=== PATIENT | male | born 1960 | race Caucasian/White ===

== ENCOUNTER → 2016-04-22 | Outpatient (CLI) | payer BC ==
[~2016-04-22] VITALS: Ht 182.9 cm; Wt 83.5 kg
[~2016-04-22] MED LIST: BACLOFEN 10MG T10 MG PO; LIPITOR 20 MG T20 M1 PO; LOSARTAN POTAS100 MG PO; NABUMETONE 750750 M1 PO; NEURONTIN 300300 M1 PO; TRAMADOL 50 MG50 MG PO
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
[2016-04-22 09:29] VITALS: BP 126/81
== END | disposition home or self-care (01) ==
LOC: PAIN 07:07
DX: M54.12 Radiculopathy, cervical region (principal); G95.89 Other specified diseases of spinal cord; I10 Essential (primary) hypertension

== ENCOUNTER → 2016-07-07 | Outpatient (CLI) | payer BC ==
[~2016-07-07] VITALS: Ht 182.9 cm; Wt 84.4 kg
--- NOTE | ~2016-07-07 | HPC ---
[facility] [place] [address] PAIN MANAGEMENT CONSULTATION Name: ALYSON ROMO [id number] Admission: 07/07/16 Attend Phys: José Manuel Cardona DO Discharge: Date of : 64 Report #: [id number] THIS REPORT FOR: //name// CC: Zackery Cardona The patient is a 56-year-old gentleman, prior seen in the pain clinic 04/22/2016. The patient is being treated for symptomatic cervical radiculopathy requiring complex medication management, history of cervical myelopathy secondary to prior spinal cord trauma in the distant past. The patient ultimately progressed after a single cervical epidural injection on 03/31/2016. This is affording good incremental relief, pain has begun to recur, it is in the neck, left shoulder and both arms. PHYSICAL EXAMINATION: GENERAL: Shows a 56-year-old gentleman, BMI is 25.2 kilograms per meter squared. Cervical range of motion is limited. Positive Lhermitte's, decreased strength bilateral shoulders. ASSESSMENT: Symptomatic cervical radiculopathy in a gentleman who had by report 80% relief following the cervical injection for up to 3 months, pain has recurred. He is using nabumetone p.r.n., gabapentin 300 as well, baclofen p.r.n. The nabumetone caused a little gastritis. ASSESSMENT: Symptomatic cervical radiculopathy. RECOMMENDATIONS: Repeat cervical epidural injection under fluoroscopy today. Follow up simply as needed. He has history of C3 cord contusion and now ongoing cervical radiculopathy with broad-based disk at C6-C7 and canal narrowed to 7.5 mm at C5-C6. If symptoms continue to be problematic, may consider cervical decompression. PROCEDURE: Cervical epidural steroid injection under fluoroscopy. PROCEDURE NOTE: After written and informed consent was obtained including risk of dural puncture, spinal cord trauma, paralysis and increased pain, the patient was taken to the fluoroscopy suite and placed in the prone position, with appropriate abdominal bolstering, neck was flexed, palms under the thighs. Skin was prepped with ChloraPrep. Sterile draping was applied. Skin wheal with 1% Xylocaine was raised. A 22-gauge 3-1/2 inch epidural Tuohy needle was placed via a midline approach at the C7-T1 interspace, advanced under biplanar fluoroscopy using continuous loss of resistance. With appropriate loss of resistance at the expected depth on lateral view, the glass loss of resistance syringe was disconnected. A low volume extension tubing was connected to the needle and a 5 mL syringe. Negative aspiration for cerebrospinal fluid or blood was noted. A 1 mL of Omnipaque was injected which showed spread within the epidural space on biplanar fluoroscopy. This was followed with 80 mg of [facility] [address] [place] [address] PAIN MANAGEMENT CONSULTATION Name: DEMETRIUSALYSON CARLOS [facility] [id number] Admission: 07/07/16 Attend Phys: José Manuel Cardona DO Discharge: Date of : 64 Report #: [id number] triamcinolone plus 1 mL of 1.5% preservative Xylocaine. Needle was withdrawn to the interspinous ligament, 0.5 mL of Xylocaine was used to flush the needle. The needle was then completely withdrawn. The area was cleansed. Band-Aid was applied. The patient was allowed to move off the procedure table and ambulated to the recovery room, monitored for an appropriate period of time, discharged in good and stable condition. <ELECTRONICALLY SIGNED> By: José Manuel Cardona DO 07/08/16 0704 [id number] 0233 José Manuel Cardona DO /nt
[2016-07-07 13:30] VITALS: BP 129/82
== END | disposition home or self-care (01) ==
LOC: PAIN 06:51
DX: M54.12 Radiculopathy, cervical region (principal); I10 Essential (primary) hypertension

== ENCOUNTER → 2018-02-07 | Outpatient (CLI) | payer BC ==
[~2018-02-07] VITALS: Ht 182.9 cm; Wt 83.9 kg
[~2018-02-07] MED LIST changes: +LOSARTAN-HCTZ1 EAC2 PO
[2018-02-07 13:06] VITALS: BP 134/85
== END | disposition home or self-care (01) ==
LOC: PAIN 07:07
DX: M54.12 Radiculopathy, cervical region (principal); Z79.899 Other long term (current) drug therapy

== ENCOUNTER → 2018-04-20 | Outpatient (CLI) | payer BC ==
[~2018-04-20] VITALS: Ht 182.9 cm; Wt 85.7 kg
[~2018-04-20] MED LIST changes: +CEFUROXIME250 MG PO
--- NOTE | ~2018-04-20 | HPC ---
[facility] [place] [address] [address] [place] [address] PAIN MANAGEMENT CONSULTATION Name: ALYSON ROMO Room #: REG [facility]#: [id number] Admission: 04/20/18 Attend Phys: Maged Blas MD Discharge: Date of : 64 Report #: [id number] THIS REPORT FOR: //name// CC: Zackery Santo DATE OF SERVICE: 04/20/2018 CHIEF COMPLAINT: Here for possible cervical epidural injection. HISTORY: The patient is a 58-year-old gentleman who has been seen in the pain clinic in the past because of cervical radiculopathy. He underwent an epidural steroid injection at the last visit. He noted significant improvement in his pain. Pain decreased greater than 50%. He is still noting some improvement in the pain. He has noted some increased pain at this juncture. It involves his neck with pain that is radiating down into both shoulders and into his upper arms. Left side is more problematic than the right. He recently has had some cold symptomatology. He has been seen by his physician and started on cefuroxime for 10 days. He has taken the first pill. At this juncture, his pain continues to be problematic. He rates it as a 6-7/10 and would like to consider an injection. ALLERGIES: No known drug allergies. CURRENT MEDICATIONS: Losartan/hydrochlorothiazide 100/12.5, Relafen 750 mg b.i.d., Lipitor 20 mg, cefuroxime 10-day course. PAIN CLINIC ASSESSMENT/PQRS: 1. History of osteoarthritis. The patient has some arthritic changes in his arm as well as in his knee. The patient is not being treated for rheumatoid arthritis. 2. Height 6 feet, weight 189 pounds, BMI is 25. 3. Vital signs: Blood pressure 150/69, respiratory rate 16, room air saturation is 99%. 4. Pain intensity 6-7/10. 5. Fall risk. The patient has not fallen in the last 3 months. 6. Blood thinner. The patient is not on a blood thinning medication. 7. Hypertension. The patient is being treated for hypertension. 8. Opioids greater than for 1 week. The patient is not being treated for opioids. 9. Risk assessment tool, low for opioid risk. 10. Functional assessment tool . 11. Drug use. The patient denies use of recreational drugs. 12. Tobacco: The patient denies use of tobacco. 13. Alcohol: The patient occasionally drinks alcoholic beverages. [facility] [address] [place] [address] PAIN MANAGEMENT CONSULTATION Name: ALYSON ROMO Room #: REG [facility]#: [id number] Admission: 04/20/18 Attend Phys: Maged Blas MD Discharge: Date of : 64 Report #: [id number] PHYSICAL EXAMINATION: GENERAL: The patient is a well-developed, well-nourished white male. Appears his stated age. He is alert, oriented x 3. Affect is appropriate. Speech is fluent. HEENT: Normocephalic, atraumatic. Extraocular eye muscles intact. Sclerae nonicteric. NECK: Without adenopathy or JVD. The patient has some pain and discomfort with radiation of pain down into both shoulders bilaterally. Also, notes some pain and discomfort in the forearm area. Notes some weakness and sensory changes. ABDOMEN: Nontender. Bowel sounds present. EXTREMITIES: Upper extremity without significant scoliosis, kyphosis, or lordosis. Upper extremity muscle strength is judged to be 5-/5 for the major muscle groups in the upper extremity. Deep tendon reflexes are trace at the biceps. Lower extremity, trace reflexes at the knees. IMPRESSION: 1. Cervical radiculopathy with pain that is radiating down into his arms and with decreased sensory findings in the C6-C7 area. The patient has a broad-based disk protrusion at C6-C7 with tapering to 9 mm. Also, the patient has some narrowing in the left paracentral disk area with protrusion at C5-C6 tapering on the left with the canal measuring 7.5 mm. Severe left foraminal stenosis at this level. Again if we had the impression, which should have been cervical radiculopathy. 2. Hypercholesterolemia. 3. Hypertension. RECOMMENDATIONS: We discussed treatment options with the patient and his . The patient recently started an antibiotic. We explained to him the reason behind delay of a cervical epidural steroid injection. Steroids can decrease one's ability to fight off infections. The patient is receiving cefuroxime for the next 10 days. Once he finishes his medication and finds that his sinuses have improved/resolved, the patient will then come to the pain clinic, at which time we will consider a cervical epidural steroid injection. The patient's states that they understand. He has gleaned greater than 50% improvement after the last injection. He has returned today for evaluation. The patient will follow up after resolution of his upper airway problem with sinusitis. By: [id number] Maged Blas MD /clare
[2018-04-20 13:16] VITALS: BP 150/99
--- NOTE | 2018-04-20 13:21 | NUR ---
Pain Clinic Assessment: 1. History of Osteoarthritis: Not Applicable History of Rheumatoid Arthritis: Not Applicable 2. Height: 6 ft. 0 in. 182.9 cm. Weight: 189.0 lb. oz. 85.730 kg. Patient's BMI: 25.6 3. Vital Signs: BP: 150/99 Pulse: 69 Resp: 16 Temp: 02 Sat: 99 ECG Mon: 4. Pain Intensity: 6-7 5. Fall Risk: Dizziness: N Needs help standing or walking: N Fallen in the last 3 months: N Fall risk comments: 6. Patient on Blood Thinner: None 7. History of Hypertension: Y 8. Opioid Therapy greater than 6 weeks: N Opiate Contract Signed: 9. Risk Assessment Tool Provided: LOW RISK 0 10. Functional Assessment Tool: 11. Recreational Drug Use: Never Drug Type: Tobacco Use: Never Smoker Tobacco Type: Amount or Packs/day: How Many Years: Alcohol Use: Yes Frequency: Quant:
== END ==
LOC: PAIN 07:25
DX: M50.123 Cervical disc disorder at C6-C7 level with radiculopathy (principal); M48.02 Spinal stenosis, cervical region; E78.00 Pure hypercholesterolemia, unspecified; I10 Essential (primary) hypertension

== ENCOUNTER → 2018-05-09 | Outpatient (CLI) | payer BC ==
[~2018-05-09] VITALS: Ht 182.9 cm; Wt 86.3 kg
[2018-05-09 13:24] VITALS: BP 130/84
--- NOTE | 2018-05-09 13:34 | NUR ---
Pain Clinic Assessment: 1. History of Osteoarthritis: Not Applicable History of Rheumatoid Arthritis: Not Applicable 2. Height: 6 ft. 0 in. 182.9 cm. Weight: 190.2 lb. oz. 86.274 kg. Patient's BMI: 25.8 3. Vital Signs: BP: 130/84 Pulse: 66 Resp: 16 Temp: 02 Sat: 98 ECG Mon: 4. Pain Intensity: 5 5. Fall Risk: Dizziness: N Needs help standing or walking: N Fallen in the last 3 months: N Fall risk comments: 6. Patient on Blood Thinner: None 7. History of Hypertension: Y 8. Opioid Therapy greater than 6 weeks: N Opiate Contract Signed: 9. Risk Assessment Tool Provided: LOW RISK 0 10. Functional Assessment Tool: 11. Recreational Drug Use: Never Drug Type: Tobacco Use: Never Smoker Tobacco Type: Amount or Packs/day: How Many Years: Alcohol Use: Yes Frequency: Quant:
--- NOTE | 2018-05-11 08:38 | HPC ---
[facility] [place] [address] PAIN MANAGEMENT CONSULTATION Name: ALYSON ROMO Room #: REG [facility].#: [id number] Admission: 05/09/18 Attend Phys: Maged Blas MD Discharge: Date of : 64 Report #: [id number] THIS REPORT FOR: //name// CC: Zackery Blas DATE OF SERVICE: 05/09/2018 CHIEF COMPLAINT: Here for a cervical epidural steroid injection. HISTORY: The patient is a 58-year-old gentleman, who has been followed in the pain clinic because of cervical radiculopathy. He has undergone epidural steroid injections and gleaned benefits from these. He returns today for another injection. He has gleaned greater than 50% improvement after the injections. He was somewhat sick at the last visit and unable to undergo an injection. He has returned today to undergo an injection. He notes that the pain often times last 3-4 months. At this juncture, he feels that another injection would be beneficial. He is having pain that radiates down into both shoulders in the mid and upper back area. CURRENT MEDICATIONS: Losartan/hydrochlorothiazide 100/12.5, Relafen 750 mg b.i.d., and Lipitor 20 mg. ALLERGIES: No known drug allergies. PAIN CLINIC ASSESSMENT AND PQRS: 1. History of osteoarthritis. The patient has some arthritic changes in his arm as well as in his knee. He has not been treated for rheumatoid arthritis. 2. Pain intensity is 5/10. 3. Fall risk. The patient has not fallen in the last 3 months. 4. Blood thinner. The patient is not on a blood thinning medication. 5. Hypertension. The patient is being treated for hypertension. 6. Opioid therapy greater than 6 weeks. The patient is not on a regular opioid regimen. 7. Functional assessment tool, 45/70. 8. Risk assessment tool, low, zero for risks of opioid use. 9. Recreational drug use. The patient denies use of recreational drugs. 10. Tobacco: The patient has never smoked. 11. Alcohol. The patient drinks alcoholic beverages on occasion. PHYSICAL EXAMINATION: GENERAL: The patient is a well-developed, well-nourished white male. He appears his stated age. He is alert and oriented x 3. His affect is appropriate. Speech is fluent. Height is 6 feet, weight is 190 pounds, and BMI is 25.8. VITAL SIGNS: Blood pressure is 130/84, pulse is 66, respiratory rate is 16, and [facility] [address] [place] [address] PAIN MANAGEMENT CONSULTATION Name: ALYSON ROMO Room #: REG [facility]#: [id number] Admission: 05/09/18 Attend Phys: Maged Blas MD Discharge: Date of : 64 Report #: [id number] room air saturation is 98%. HEENT: Normocephalic, atraumatic. Extraocular eye muscles intact. Sclerae nonicteric. Mucous membranes are moist. NECK: Without adenopathy or JVD. The patient has some pain and discomfort in his back and shoulder area bilaterally. He has pain and discomfort that radiates down into the right and left shoulders, left side more problematic than right. ABDOMEN: Nontender. Bowel sounds present. EXTREMITIES: Muscle strength is judged to be 5/5 for the major muscle groups in the upper extremity. IMPRESSION: 1. Cervical radiculopathy in the C6-C7 area. The patient has some decreased sensation in this area. The patient has disk protrusion at C6-C7 with tapering to 9 mm. 2. The patient has a narrowing of the left paracentral disk area with protrusion at C5-C6, tapering to the left and measuring 7.5 mm. 3. Severe left foraminal stenosis at this level. 4. Hypercholesterolemia. 5. Hypertension. RECOMMENDATIONS: We have discussed treatment options with the patient and his . Risks and benefits of an epidural steroid injection in the cervical area were again reviewed. Possible complications of the procedure, which could include but are not limited to infection, worsening pain, no improvement in pain, bleeding, nerve damage, and paralysis were reviewed. The patient elects to proceed. PROCEDURE NOTE: The patient was taken to the procedure area. He was assisted in getting on the examination table. He was placed in the prone position. A pillow was placed under his shoulders to bolster and improve positioning. His neck was sterilely prepped with a Betadine solution. It was allowed to dry. Fluoroscopy using anterior, posterior as well as lateral viewing were implemented. A 25-gauge needle was then advanced into the area of the C7-T1 interspace. This area had been sterilely prepped with Betadine and infiltrated with 0.25% bupivacaine. A 17-gauge Tuohy with loss of resistance technique was used to gain access to the epidural space. There was no CSF, heme, or paresthesia. A total of 120 mg triamcinolone was injected. The patient tolerated the procedure well. A total of 10 seconds fluoroscopy time was used. The patient's pain was 0 at the time of discharge, down from 5. He will follow up in the future as needed. [address] [address] PAIN MANAGEMENT CONSULTATION Name: ALYSON ROMO Room #: REG [facility].#: [id number] Admission: 05/09/18 Attend Phys: Maged Blas MD Discharge: Date of : 64 Report #: [id number] We would like to thank you for letting us to participate in his care. We hope he continues to improve. <ELECTRONICALLY SIGNED> By: Maged Blas MD 05/11/18 0838 [id number] [id number] Maged Blas MD /[facility]
== END | disposition home or self-care (01) ==
LOC: PAIN 07:08
DX: M50.123 Cervical disc disorder at C6-C7 level with radiculopathy (principal); M48.02 Spinal stenosis, cervical region; G89.29 Other chronic pain; I10 Essential (primary) hypertension; E78.00 Pure hypercholesterolemia, unspecified; M19.90 Unspecified osteoarthritis, unspecified site; Z79.899 Other long term (current) drug therapy; Z98.890 Other specified postprocedural states

== ENCOUNTER → 2019-01-23 | Outpatient (CLI) | payer BC ==
[~2019-01-23] VITALS: Ht 185.4 cm; Wt 82.8 kg
[2019-01-23 11:48] VITALS: BP 153/76
--- NOTE | 2019-01-23 11:58 | NUR ---
Pain Clinic Assessment: 1. History of Osteoarthritis: Not Applicable History of Rheumatoid Arthritis: Not Applicable 2. Height: 6 ft. 1 in. 185.4 cm. Weight: 182.6 lb. oz. 82.827 kg. Patient's BMI: 24.1 3. Vital Signs: BP: 153/76 Pulse: 56 Resp: 14 Temp: 02 Sat: 100 ECG Mon: 4. Pain Intensity: 8-NOW,5 DAILY AVG 5. Fall Risk: Dizziness: N Needs help standing or walking: N Fallen in the last 3 months: N Fall risk comments: 6. Patient on Blood Thinner: None 7. History of Hypertension: Y 8. Opioid Therapy greater than 6 weeks: N Opiate Contract Signed: 9. Risk Assessment Tool Provided: LOW RISK 0 10. Functional Assessment Tool: 45/ 11. Recreational Drug Use: Never Drug Type: Tobacco Use: Never Smoker Tobacco Type: Amount or Packs/day: How Many Years: Alcohol Use: Yes Frequency: Monthly Quant: 1-2 TIMES A MO
--- NOTE | 2019-02-22 08:25 | HPC ---
[facility] [place] [address] PAIN MANAGEMENT CONSULTATION Name: ALYSON ROMO Room #: REG [facility].#: [id number] Admission: 01/23/19 Attend Phys: Maged Blas MD Discharge: Date of : 64 Report #: [id number] THIS REPORT FOR: //name// CC: Zackery Santo DATE OF SERVICE: 01/23/2019 CHIEF COMPLAINT: Pain in the shoulders and neck, which goes down into both arms and into the biceps. HISTORY: The patient is a 58-year-old gentleman who has been seen in the pain clinic because of cervical radiculopathy. Epidural steroid injections in the past have been beneficial. He has gleaned greater than 50% improvement. He returns today indicating that his pain has recurred. Over the last few weeks, he has noted some worsening of the pain and it has begun to radiate down into his shoulders, arms, and has reached a level of 8 in intensity. It averages about 5/10 on a daily basis. Pain is exacerbated when he is lying down and raising his arms and with certain activities. He has tried use of Icy Hot and medications. The injections in the past have been beneficial and he has returned with the desire to undergo another cervical epidural steroid injection to help quell his pain. ALLERGIES: No known drug allergies. CURRENT MEDICATIONS: Losartan/hydrochlorothiazide 100/12.5, Relafen 750 mg b.i.d., and Lipitor 20 mg. PAIN CLINIC ASSESSMENT/PQRS: 1. History of osteoarthritis. The patient has some arthritic changes in his arm as well as in his knee. He is not being treated for rheumatoid arthritis. 2. Height 6 feet 1 inch, weight 182 pounds, BMI is 24.1. 3. Vital signs: Blood pressure 153/76, pulse 56, respiratory rate 14, room air saturation 100%. 4. Pain intensity is 8/10 now and 5/10 on a daily basis. 5. Fall risk. The patient has not fallen in the last 3 months. 6. Blood thinner. The patient is not on a blood thinning medication. 7. Hypertension. The patient is being treated for hypertension. 8. Opioids greater than 6 weeks. The patient is not using opioids on a regular basis. 9. Risk assessment tool, low for opioid use. 10. Functional assessment tool 45/. 11. Recreational drugs: The patient denies. 12. Tobacco: The patient has never smoked. 13. Alcohol: The patient drinks [place] [id number] PAIN MANAGEMENT CONSULTATION Name: ALYSON ROMO Room #: REG [facility]#: [id number] Admission: 01/23/19 Attend Phys: Maged Blas MD Discharge: Date of : 64 Report #: [id number] PHYSICAL EXAMINATION: GENERAL: The patient is a well-developed, well-nourished white male. Appears his stated age. He is alert and oriented x 3. His affect is appropriate. Speech is fluent. HEENT: Normocephalic, atraumatic. Extraocular eye muscles intact. Sclerae nonicteric. Mucous membranes are moist. NECK: Without adenopathy or JVD. The patient has pain and discomfort in his back and his shoulders bilaterally. Pain radiates down into the biceps portion of his arms. CHEST: Clear to auscultation. ABDOMEN: Nontender. Bowel sounds present. EXTREMITIES: Upper extremity muscles strength is judged 5/5 for the major muscle groups in the upper extremity. IMPRESSION: 1. Cervical radiculopathy in the C6-C7 area. The patient notes some decreased sensation in this area. The patient has a history of a protruded disk at C6-C7, which tapers this area to 9 mm. 2. The patient has a narrowing of the left paracentral disk area with protrusion at C6/C5, tapering to 7.5 mm on the left. 3. Severe left foraminal stenosis, cervical spine. 4. Hypercholesterolemia. 5. Hypertension. RECOMMENDATIONS: We discussed treatment options with the patient. Risks and benefits of a cervical epidural steroid injection were again discussed. Possible complications of the procedure were reviewed. They include but are not limited to infection, worsening of pain, no improvement in pain, bleeding, nerve damage, and the patient elects to proceed. PROCEDURE NOTE: The patient was taken to the procedure area. He was then assisted in getting on the examination table. His neck was sterilely prepped with a Betadine solution. A pillow had been placed under his chest to promote better positioning. A 0.25% bupivacaine was infiltrated using a 25-gauge needle at the C7/T1 interspace. After this area had been anesthetized, a 17-gauge Tuohy with loss of resistance technique at the C7-T1 interspace was then introduced. Aspiration was negative. A total of 120 mg triamcinolone was injected. The patient tolerated the procedure well. There were no complications. Remained in the pain clinic for an appropriate amount of time. He will follow up in the future as needed. [address] [address] PAIN MANAGEMENT CONSULTATION Name: ALYSON ROMO Room #: [facility]#: [id number] Admission: 01/23/19 Attend Phys: Maged Blas MD Discharge: Date of : 64 Report #: [id number] We would like to thank you for letting us participate in his care. We hope he continues to improve. <ELECTRONICALLY SIGNED> By: Maged Blas MD 02/22/19 0825 [id number] Maged Blas MD /[facility]
== END | disposition home or self-care (01) ==
LOC: PAIN 07:01
DX: M54.12 Radiculopathy, cervical region (principal); G89.29 Other chronic pain; M48.02 Spinal stenosis, cervical region; I10 Essential (primary) hypertension; E78.00 Pure hypercholesterolemia, unspecified; Z98.890 Other specified postprocedural states; Z79.899 Other long term (current) drug therapy

== ENCOUNTER → 2019-08-21 | Outpatient (CLI) | payer BC ==
[~2019-08-21] VITALS: Ht 182.9 cm; Wt 85.8 kg
[2019-08-21 12:27] VITALS: BP 146/91
--- NOTE | 2019-08-21 12:31 | NUR ---
Pain Clinic Assessment: 1. History of Osteoarthritis: NONES History of Rheumatoid Arthritis: Not Applicable 2. Height: 6 ft. 0 in. 182.9 cm. Weight: 189.2 lb. oz. 85.821 kg. Patient's BMI: 25.7 3. Vital Signs: BP: 146/91 Pulse: 65 Resp: 18 Temp: 02 Sat: 99 ECG Mon: 4. Pain Intensity: 8-NOW 5. Fall Risk: Dizziness: N Needs help standing or walking: N Fallen in the last 3 months: N Fall risk comments: 6. Patient on Blood Thinner: None 7. History of Hypertension: Y 8. Opioid Therapy greater than 6 weeks: N Opiate Contract Signed: 9. Risk Assessment Tool Provided: LOW RISK 0 10. Functional Assessment Tool: 11. Recreational Drug Use: Never Drug Type: Tobacco Use: Never Smoker Tobacco Type: Amount or Packs/day: How Many Years: Alcohol Use: Yes Frequency: Weekly Quant: A COUPLE DRINKS
--- NOTE | 2019-08-30 11:05 | HPC ---
[facility] [place] [address] PAIN MANAGEMENT CONSULTATION Name: ALYSON ROMO Room #: REG [facility]#: [id number] Admission: 08/21/19 Attend Phys: Maged Blas MD Discharge: Date of : 64 Report #: [id number] THIS REPORT FOR: cc: Zackery Grewal,Maged Bey MD ~ CC: Zackery Blas DATE OF SERVICE: 08/21/2019 PRIMARY CARE PHYSICIAN: Zackery Grewal DO CHIEF COMPLAINT: Return of pain and discomfort in the arm and shoulder. The patient's pain is causing some problems with sleep. HISTORY: The patient is a 59-year-old gentleman who has been followed in the pain clinic. He has had cervical pain and discomfort in the past. He has undergone an epidural steroid injection. Those have been beneficial. He has noticed that his pain has increased over the last few months. He rates the pain today as an 8/10. Pain radiates down from his neck into his biceps with numbness and tingling. He has been taking nonsteroidal anti-inflammatory medications to help with the pain. Describes it as a sharp pain at times with aching characteristics. He has used Icy Hot medications and the injections have been most beneficial. He would like to proceed with another injection. ALLERGIES: No known drug allergies. CURRENT MEDICATIONS: Losartan, hydrochlorothiazide 100/12.5, Relafen 750 mg b.i.d., Lipitor 20 mg. PAIN CLINIC ASSESSMENT AND PQRS: 1. The patient has some osteoarthritic changes in the spinal cord as well as in his knees. He is not being treated for rheumatoid arthritis. 2. Height 6 feet 0 inches, weight 189 pounds, BMI is 25.7. 3. Vital signs: Blood pressure 146/91, pulse 65, respiratory rate 18, room air saturation 99%. 4. Pain intensity 8/10. 5. Fall history: The patient has not fallen in the last 3 months. 6. Blood thinner. The patient is not on a blood thinning medication. 7. Hypertension. The patient is being treated for hypertension. 8. Opioids greater than 6 weeks. The patient is not on an opioid medication on a regular basis. 9. Risk assessment tool, low for opioid use. 10. Functional assessment tool . 11. Recreational drug use. The patient denies. [address] [address] PAIN MANAGEMENT CONSULTATION Name: ALYSON ROMO Room #: REG [facility]#: [id number] Admission: 08/21/19 Attend Phys: Maged Blas MD Discharge: Date of : 64 Report #: [id number] 12. Tobacco: The patient has never smoked. 13. Alcohol. The patient ____. PHYSICAL EXAMINATION: GENERAL: The patient is a well-developed, well-nourished white male. Appears his stated age. He is alert and oriented x 3. His affect is appropriate. Speech is fluent. HEENT: Normocephalic, atraumatic. Extraocular eye muscles intact. Sclerae nonicteric. Mucous membranes are moist. The patient has increased pain and discomfort with movement of his neck. Notes some changes in the neck position can exacerbate pain with pain causing it to radiate down into both shoulders and down into his arms. This has engulfed the biceps portion of his arms. CHEST: Clear to auscultation. ABDOMEN: Nontender. EXTREMITIES: Upper extremity muscle strength judged to be 5/5 for the major muscle groups in the upper extremity. Lower extremity muscle strength 5/5 for the lower extremities. IMPRESSION: 1. Cervical radiculopathy in the C6-C7 dermatomal distribution with sensory changes. The patient has a history of a protruded disk at C6-C7 with a taper in this area of 9 mm. The patient has a narrowing of his left paracentral disk area with protrusion at C6-C5 tapering to 7.5 mm on the left. 2. Severe left foraminal stenosis of the cervical spine. 3. Hypercholesterolemia. 4. Hypertension. RECOMMENDATIONS: We discussed treatment options with the patient. Risks and benefits of an epidural steroid injection were discussed. They include but are not limited to infection, worsening the pain, no improvement in the pain, nerve damage, nerve weakness. We have discussed the problems with use of steroids. They can suppress once immunity. In light of the COVID-19 guidance, we explained to the patient the possible complications. If he should become infected with COVID while being suppressed, he could have a more difficult time getting rid of the virus. He states that he is aware of that. His pain is so severe that he would like to proceed even in spite of that. He is staying at home. He is concerned about COVID, but feels that overall things are rise to the level that he is unable to function. PROCEDURE NOTE: The patient was taken to the procedure area. He was then assisted in getting on the examination table. His back was sterilely prepped with a Betadine solution. Fluoroscopy using anterior, posterior as well as lateral viewing were implemented. The patient's was back was infiltrated with 0.25% bupivacaine using a 25-gauge needle to numb it at the C7-T1 interspace. A 17-gauge Tuohy with loss of resistance technique was used to gain access to the epidural space. There was no CSF, heme or paresthesia. A total of [address] [facility] [address] [place] [address] PAIN MANAGEMENT CONSULTATION Name: ALYSON ROMO [id number] Admission: 08/21/19 Attend Phys: Maged Blas MD Discharge: Date of : 64 Report #: [id number] triamcinolone was injected. A total of 12 seconds fluoroscopy time was used. The patient's pain decreased from 8-0 at the time of discharge. He will stay in social isolation and remain vigilant washing hands and compliant with activities which would lessen the chance of the COVID-19 infection. We would like to thank you for letting us participate in his care. We hope he continues to improve. <ELECTRONICALLY SIGNED> By: Maged Blas MD 08/30/19 1105 1057 16 Maged Blas MD /[facility]
== END | disposition home or self-care (01) ==
LOC: PAIN 06:45
DX: M54.12 Radiculopathy, cervical region (principal); M48.02 Spinal stenosis, cervical region; I10 Essential (primary) hypertension; E78.00 Pure hypercholesterolemia, unspecified; M19.90 Unspecified osteoarthritis, unspecified site; Z98.890 Other specified postprocedural states; Z79.899 Other long term (current) drug therapy

== ENCOUNTER → 2020-01-17 | Outpatient (CLI) | payer BC ==
[~2020-01-17] VITALS: Ht 182.9 cm; Wt 83.7 kg
--- NOTE | ~2020-01-17 | HPC ---
[facility] [place] [address] PAIN MANAGEMENT CONSULTATION Name: ALYSON ROMO Room #: REG [facility].#: [id number] Admission: 01/17/20 Attend Phys: Maged Blas MD Discharge: Date of : 64 Report #: [id number] CC: Zackery Blas DATE OF SERVICE: 01/17/2020 CHIEF COMPLAINT: Pain in the right shoulder, left shoulder and biceps. HISTORY: The patient is a 59-year-old gentleman who has been followed in the pain clinic because of chronic pain. He is having pain involving both shoulders. Has some pain in his neck that radiates down into both arms. Notes that there is some sensitivity to touch in these areas. He notes pain is sharp and aching in character. Lying down and raising his arms exacerbate the pain. Has use Icy Hot and was found that the epidural injections have been beneficial. He has returned today with the hopes of undergoing another treatment course. ALLERGIES: No known drug allergies. CURRENT MEDICATIONS: Include losartan, hydrochlorothiazide 10/12.5, Relafen 750 mg b.i.d., Lipitor 20 mg. PAIN CLINIC ASSESSMENT AND PQRS: 1. The patient has some osteoarthritic changes and spinal cord as well as in his knee. He is not being treated for rheumatoid arthritis. 2. Height 6 feet, weight 184 pounds, BMI is 25. 3. Vital signs: Blood pressure 130/79, pulse 63, respiratory rate 14, room air saturation 100%. 4. Pain intensity 7-8/10. 5. The patient has pain radiating in the right shoulder, left shoulder and down into the biceps. 6. Fall history: The patient has not fallen in the last 3 months. 7. Blood thinner. The patient is not on a blood thinning medication. 8. Hypertension. The patient is being treated for hypertension. 9. Opioids. The patient receives medication from his primary. 10. Risk assessment tool, low for opioid use. 11. Functional assessment tool 45/70. 12. Recreational drug use. The patient denies. 13. Tobacco: The patient does not smoke. 14. Alcohol: The patient occasionally drinks alcoholic beverages. PHYSICAL EXAMINATION: GENERAL: The patient is a well-developed, well-nourished white male. Appears his stated age. He is alert and oriented x 3. His affect is appropriate. Speech is fluent. HEENT: Normocephalic, atraumatic. Extraocular eye muscles intact. Sclerae nonicteric. Mucous membranes are moist. The patient has some pain and discomfort in the posterior portion of his neck. Range of motion in his neck is somewhat limited. He notes some exacerbation of pain and discomfort down into both shoulders into his arms with certain movements. Notes some pain and discomfort in his biceps. CHEST: Clear to auscultation. HEART: Regular rate. ABDOMEN: Nontender. MUSCULOSKELETAL: Upper extremity muscle strength judged to be 5/5 for the major muscle groups in the upper extremity. Lower extremity muscle strength judged to be 5/5 for the lower extremities. IMPRESSION: Cervical radiculopathy in the C6-C7 dermatomal distribution with sensory changes. The patient has a history of a protruding disk at C6-C7 with the tapering to 9 mm. The patient also has a narrowing of the left paracentral disk with protrusion at C5-C6 with tapering to 7.5 mm on the left. IMPRESSION: 1. Severe left foraminal stenosis of the cervical spine. 2. Hypercholesterolemia. 3. Hypertension. RECOMMENDATIONS: We discussed treatment options with the patient. At this juncture, we will have the patient resume nabumetone 750 mg 1 p.o. b.i.d. He will return to the Pain Clinic in the future as needed. The patient will also consider a cervical epidural steroid injection today. Risks and benefits of the procedure were discussed. They include but are not limited to infection, worsening pain, no improvement in pain, nerve damage, bleeding, and the patient elects to proceed. We discussed the problems with COVID-19. Steroids can decrease one's immunity. Should the patient's immunity fall he may have a more difficult time with COVID-19. He elects to proceed. PROCEDURE NOTE: The patient was taken to the procedure area. He was then assisted in getting on the examination table. A pillow was placed under his shoulders. His neck was sterilely prepped with a Betadine solution. A 0.25% bupivacaine was infiltrated at the C7-T1 interspace. A 17-gauge Tuohy with loss of resistance technique was used to gain access to the epidural space. There was no CSF, heme or paresthesia. . Total of 120 mg triamcinolone was injected. The patient tolerated the procedure well. A total of 9 seconds fluoroscopy time was used. The patient's pain decreased from 7-0 at the time of discharge. We would like to thank you for letting us participate in his care. We hope he continues to improve. By: [id number] [id number] Maged Blas MD /[facility]
[2020-01-17 10:17] VITALS: BP 130/79
--- NOTE | 2020-01-17 10:30 | NUR ---
Pain Clinic Assessment: 1. History of Osteoarthritis: NO History of Rheumatoid Arthritis: Not Applicable 2. Height: 6 ft. 0 in. 182.9 cm. Weight: 184.6 lb. oz. 83.734 kg. Patient's BMI: 25.0 3. Vital Signs: BP: 130/79 Pulse: 63 Resp: 14 Temp: 02 Sat: 100 ECG Mon: 4. Pain Intensity: 7 5. Fall Risk: Dizziness: N Needs help standing or walking: N Fallen in the last 3 months: N Fall risk comments: 6. Patient on Blood Thinner: None 7. History of Hypertension: Y 8. Opioid Therapy greater than 6 weeks: N Opiate Contract Signed: 9. Risk Assessment Tool Provided: LOW RISK 0 10. Functional Assessment Tool: 11. Recreational Drug Use: Never Drug Type: Tobacco Use: Never Smoker Tobacco Type: Amount or Packs/day: How Many Years: Alcohol Use: Yes Frequency: Quant:
== END | disposition home or self-care (01) ==
LOC: PAIN 06:58
PROVIDERS: ATTEND Anesthesiology Pain Medicine
DX: M48.02 Spinal stenosis, cervical region (principal); G89.29 Other chronic pain; I10 Essential (primary) hypertension; E78.00 Pure hypercholesterolemia, unspecified; Z98.890 Other specified postprocedural states; Z79.899 Other long term (current) drug therapy